=== PATIENT | female | born 1960 | race African-American/Black ===

== ENCOUNTER 2017-11-01 13:47 | Inpatient (IN) | payer SELFPAY ==
[2017-11-01 14:17] LABS: Hemoglobin 13.5 g/dL (12.0-16.0); Mean Corpuscular HGB CONC 33.8 g/dL (32.0-36.0); Mean Corpuscular Hemoglobin 30.8 pg (27.0-31.0); Mean Corpuscular Volume 91.3 fl (81.0-99.0); Mean Platelet Volume 9.1 fL (7.4-10.4); Platelet Count 184 thou/uL (130-400); RBC Distribution Width 12.6 % (11.5-14.5); Red Blood Cell (RBC) Count 4.37 mill/uL (4.20-5.40); White Blood Cell (WBC) Count 8.1 thou/uL (4.8-10.8)
[2017-11-01 14:22] LABS: PTT 27.4 SEC (22.9-36.1); Prothrombin Time 13.6 SEC (12.0-14.7)
[2017-11-01 14:31] LABS: ALT (SGPT) 24 U/L (8-55); AST (SGOT) 28 U/L (5-34); Albumin 4.4 g/dL (3.5-5.0); Alkaline Phosphatase 77 U/L (40-150); Anion Gap 17 mmol/L (10-20); BUN (Urea Nitrogen) 16 mg/dL (9.8-20.1); Bilirubin, Total 0.2 mg/dL (0.2-1.2); Calc. Creatinine Clearance 0 mL/min (70-130); Calcium 10.6 mg/dL (7.8-10.44); Carbon Dioxide 21 mmol/L (22-29); Chloride 100 mmol/L (98-107); Estimated GFR-MDRD 45; Globulin 4.8 g/dL (2.4-3.5); Glucose 298 mg/dL (70-105); Potassium 4.2 mmol/L (3.5-5.1); Protein, Total 9.2 g/dL (6.0-8.3); Sodium 134 mmol/L (136-145)
[2017-11-01 14:34] LABS: CKMB 3.3 ng/mL (0-6.6); Troponin I Less than 0.010 ng/mL (< 0.028)
[2017-11-01 14:36] LABS: Eosinophils 2 % (0-10); Lymphocytes 17 % (21-51); MDiff Complete? YES; Metamyelocyte 1 % (0-0); Monocytes 5 % (0-10); Neutrophil 75 % (42-75); PLT Morphology Comment Appears Adequate
[2017-11-01] MEDS ORDERED: Aspirin 325 MG TAB ONE (14:37)
[2017-11-01] MEDS ORDERED: Labetalol HCl 100 MG/20 ML VIAL ONE (14:37)
[2017-11-01] MEDS ORDERED: Dextrose 50% Abboject 50 ML SYRINGE SLOW IVP PRN (15:16)
[2017-11-01] MEDS ORDERED: Bisacodyl 5 MG TAB PO PRN (15:16)
[2017-11-01] MEDS ORDERED: Labetalol HCl 100 MG/20 ML VIAL SLOW IVP PRN (15:16)
[2017-11-01] MEDS ORDERED: Dextrose 5% in Water 1,000 ML IV PRN (15:16)
[2017-11-01] MEDS ORDERED: hydrALAZINE 20 MG/ML VIAL SLOW IVP PRN (15:16)
[2017-11-01] MEDS ORDERED: Acetaminophen 650 MG Suppository PR PRN (15:16)
[2017-11-01] MEDS ORDERED: hydrALAZINE 20 MG/ML VIAL ONE (15:23)
--- NOTE | 2017-11-01 15:43 | CT ---
CT BRAIN: History: Slurred speech, weakness. Right sided facial weakness. Technique: Noncontrast enhanced CT images of the brain were obtained. FINDINGS: No evidence of intracranial masses, hemorrhages, strokes or contusions seen. Ventricles are of normal size. IMPRESSION: Normal CT brain. POS: [facility]
--- NOTE | 2017-11-01 15:47 | CT ---
INTRACRANIAL CTA OF HEAD INTRACRANIAL CTA OF THE CAROTIDS: History: Slurred speech, right sided weakness. Technique: Contrast enhanced CTA of the carotid arteries and intracranial CT is performed. FINDINGS: There is some atherosclerotic plaque seen in the aortic arch. No evidence of significant pulmonary pa renchymal lesions seen. Some heterogeneity is noted in the right thyroid lobe and to a lesser degree the left thyroid lobe. C orrelate with dedicated thyroid sonographically electively. Extensive jugular and more posterior neck collateral veins are seen. The right and left common carotid arteries are unremarkable in the proximal mid portions. There is bi lateral distal CCA calcified plaque resulting in approximately 25% right distal CCA and 30% left dist al CCA stenosis due to calcified plaque. The right and left internal carotid arteries are patent. Goo d flow is seen in the APRIL, MCA vessels. Anterior communicating arteries are unremarkable. Vertebrobasilar arteries bilaterally are grossly unremarkable. Right and left posterior cerebral arlet ellen are visualized. IMPRESSION: No significant evidence of occlusive disease seen. Findings called to Dr. Bran at 2:19 p.m. on 11-01-17. POS: [facility]
[2017-11-01 15:53] LABS: Hemoglobin A1c 9.2 % (4.0-6.0)
[2017-11-01 16:18] VITALS: BMI 26.4
[2017-11-01] MEDS: Sodium Chloride 0.9% 1,000 ML IV SCH (16:30)
[2017-11-01] MEDS ORDERED: ISOVUE-370 76%-LOCM 1 ML ONE (16:40)
--- NOTE | 2017-11-01 16:45 | HP ---
PRIMARY CARE PROVIDER: Out of town, [place]. CHIEF COMPLAINT: Slurred speech and facial droop. HISTORY OF PRESENT ILLNESS: Ms. Pratt is a pleasant 57-year-old lady who was seen at [facility] on 11/01/2017. She is visiting from [place]. She reports that she was drinking during the night and around 3:30 a.m., her daughter noticed that nasreen lopez had slurred speech as well as right-sided facial droop. The patient came to the emergency room aft er several hours. She reports that in the meantime, her speech has improved, but she is slurring on certain words. She also reports that her facial droop has resolved. She denies any chest pain or shortness of breath. She denies any fevers or chills. She reports that she is compliant with her medications. REVIEW OF SYSTEMS: The following complete review of systems was negative, unless otherwise mentioned in the HPI or below: Constitutional: Weight loss or gain, ability to conduct usual activities. Skin: Rash, itching. Eyes: Double vision, pain. ENT/Mouth: Nose bleeding, neck stiffness, pain, tenderness. Cardiovascular: Palpitations, dyspnea on exertion, orthopnea. Respiratory: Shortness of breath, wheezing, cough, hemoptysis, fever or night sweats. Gastrointestinal: Poor appetite, abdominal pain, heartburn, nausea, vomiting, constipation, or diarr hea. Genitourinary: Urgency, frequency, dysuria, nocturia. Musculoskeletal: Pain, swelling. Neurologic/Psychiatric: Anxiety, depression. Allergy/Immunologic: Skin rash, bleeding tendency. PAST MEDICAL HISTORY: Significant for hypertension, diabetes mellitus type 2 and gastroesophageal re flux disease. PAST SURGICAL HISTORY: Significant for section x2. SOCIAL HISTORY: The patient drinks alcohol on a weekly basis. She reports smoking cigarettes occasi onally. She also uses marijuana, but denies any other recreational drug use. FAMILY HISTORY: Significant for stroke in her first cousin as well as paternal uncle. ALLERGIES: CODEINE. CURRENT MEDICATIONS: Metformin 1000 mg 2 times a day, glipizide 5 mg 2 times a day, aspirin 81 mg da afia, Prevacid 20 mg daily, losartan/hydrochlorothiazide 100/25 mg daily. PHYSICAL EXAMINATION: GENERAL: Ms. Pratt is awake and alert, not in acute distress. VITAL SIGNS: Blood pressure is 195/99, pulse is 81. She is breathing at rate of 22 and saturating 1 00% on room air. She is afebrile. Her blood pressure was as high as 231/100 in the emergency room jessica honeycutt. EYES: No scleral icterus. No conjunctival pallor. ENT: Moist mucosal membranes. No oropharyngeal erythema or exudates. NECK: Supple, nontender, normal range of movement. Trachea is midline. RESPIRATORY: Accessory muscles of breathing are not active. Chest wall movements are symmetric bila terally. Lungs are clear to auscultation without wheeze, rhonchi or crepitations. CARDIOVASCULAR: S1 and S2 are heard, regular. Peripheral pulses palpable. No carotid bruit, no per icardial rub. ABDOMEN: Soft and nontender. Bowel sounds are heard. No hepatomegaly, no splenomegaly. NEUROLOGIC: She actually appears to have mild left-sided facial droop. Otherwise, cranial nerves II -XII are intact. No focal motor or sensory deficits. Power is 5/5 in all 4 extremities. Deep tendo n reflexes 2+, plantar reflexes downgoing bilaterally. MUSCULOSKELETAL: Power in the 4 extremities as described above. Normal range of movement at all josefina or extremity joints. SKIN: No rashes or subcutaneous nodules. LYMPHATIC: No cervical lymphadenopathy. PSYCHIATRIC: Normal mood, normal affect. The patient is oriented to person, place and time. DATABASE: Ms. Pratt's labs and investigations were reviewed. I reviewed her electrocardiogram, [facility] shows normal sinus rhythm, no ST changes to suggest an acute coronary syndrome. I also reviewed er noncontrast CT scan of the brain, which did not show any acute abnormality. She also had a CT ang iogram of the head and neck. The emergency room physician reports that she had a 30% stenotic lesion in the right internal carotid artery. She has an unremarkable CBC, INR 1.0, hyponatremia with sodiu m of 134, normal potassium, elevated creatinine of 1.23, elevated glucose of 298, elevated calcium of 10.6, normal AST, normal ALT, normal alkaline phosphatase, normal total bilirubin and normal albumin . Troponin I is normal. ASSESSMENT AND PLAN: Ms. Pratt is a pleasant 57-year-old lady who was seen at [facility] on 11/01/2017. Her problem list includes: 1. Transient ischemic attack: She is presenting with symptoms suggestive of transient ischemic jamel ck. She will be admitted to the hospital for further monitoring and workup including MRI brain and 2 D echocardiogram. Cardiology Service will be consulted as well for opinion and help with management. She is already on aspirin and has a history of gastroesophageal reflux disease. Therefore, I am st arting her on Plavix instead of increasing aspirin dose. I will also start her on statin. 2. Hyponatremia: Mild, likely asymptomatic, we will recheck. 3. Renal insufficiency: Unsure whether this is acute or chronic. We will provide intravenous fluid s and recheck. Her blood urea nitrogen is normal at this time. 4. Diabetes mellitus type 2: Appears to be poorly controlled. We will start patient on Accu-Cheks and insulin sliding scale and check hemoglobin A1c. 5. Hypertension: Monitor vital signs, titrate antihypertensives as needed. 6. Hypercalcemia: Mild, rechecked. Many thanks for allowing me to participate in Ms. Pratt's care. Please feel free to contact me with any questions or concerns. LEVEL OF RISK: High. LEVEL OF COMPLEXITY: High.
[2017-11-01 19:20] LABS: Amphetamine Not Detected (NotDetected); Barbiturates Screen Not Detected (NotDetected); Benzodiazepine Screen Not Detected (NotDetected); Cocaine Metabolite Screen Not Detected (NotDetected); Medtox Control Line Valid? VALID (VALID); Medtox Reader # READER 1; Methadone Not Detected (NotDetected); Methamphetamine Not Detected (NotDetected); Opiate Screen Not Detected (NotDetected); Oxycodone Screen Not Detected (NotDetected); Phencyclidine (PCP) Not Detected (NotDetected); THC/Cannabinoid Screen Not Detected (NotDetected); Tricyclic Screen Not Detected (NotDetected)
[2017-11-01] MEDS: Atorvastatin Calcium 10 MG TAB PO SCH (21:01)
[2017-11-01] MEDS: HumaLOG 300 UNITS/3 ML VIAL SC PRN (21:01)
[2017-11-02] MEDS: Acetaminophen 325 MG TAB PO PRN (00:02)
[2017-11-02 05:52] LABS: Anion Gap 13 mmol/L (10-20); BUN (Urea Nitrogen) 14 mg/dL (9.8-20.1); Calc. Creatinine Clearance 79 mL/min (70-130); Calcium 9.2 mg/dL (7.8-10.44); Carbon Dioxide 25 mmol/L (22-29); Cardiac Risk 4.2 (Less than 4.5); Chloride 101 mmol/L (98-107); Cholesterol 191 mg/dl (< 200 Desired); Estimated GFR-MDRD 72; Glucose 261 mg/dL (70-105); HDL Cholesterol 45 mg/dL (>60 Neg Risk); LDL Cholesterol, Calculated 123 mg/dL; Potassium 3.7 mmol/L (3.5-5.1); Sodium 135 mmol/L (136-145); Triglycerides 116 mg/dL (Less than 150)
[2017-11-02 06:00] LABS: #Basophils 0.1 thou/uL (0.0-0.2); #Eosinphils 0.5 thou/uL (0.0-0.7); #Lymphocytes 2.9 thou/uL (1.20-3.40); #Monocytes 0.6 thou/uL (0.11-0.59); #Neutrophils 3.5 thou/uL (1.40-6.50); %Basophils 1.5 % (0.0-1.0); %Eosinophils 7.1 % (0.0-10.0); %Lymphocytes 38.2 % (21.0-51.0); %Monocytes 7.7 % (0.0-10.0); %Neutrophils 45.5 % (42.0-75.0); Hemoglobin 10.9 g/dL (12.0-16.0); Mean Corpuscular HGB CONC 32.7 g/dL (32.0-36.0); Mean Corpuscular Hemoglobin 29.6 pg (27.0-31.0); Mean Corpuscular Volume 90.6 fl (81.0-99.0); Mean Platelet Volume 7.8 fL (7.4-10.4); Platelet Count 310 thou/uL (130-400); RBC Distribution Width 12.4 % (11.5-14.5); Red Blood Cell (RBC) Count 3.67 mill/uL (4.20-5.40); White Blood Cell (WBC) Count 7.7 thou/uL (4.8-10.8)
[2017-11-02] MEDS: HumaLOG 300 UNITS/3 ML VIAL SC PRN ×3 (06:39→17:14)
[2017-11-02] MEDS ORDERED: Acetaminophen/Codeine 30-300mg Tablet PO SCH (08:30)
[2017-11-02] MEDS: Enoxaparin Sodium 40 MG/0.4 ML SYRINGE SC SCH (08:50)
[2017-11-02] MEDS: Clopidogrel Bisulfate 75 MG TAB PO SCH (08:51)
[2017-11-02] MEDS: glipiZIDE 5 MG TAB PO SCH ×2 (08:51→21:53)
[2017-11-02] MEDS: Aspirin 81 mg Enteric Coated Tablet PO SCH (08:51)
[2017-11-02] MEDS: Losartan/Hydrochlorothiazide 100 mg/25 mg Tablet PO SCH (08:51)
[2017-11-02] MEDS: metFORMIN 500 MG TAB PO SCH ×2 (08:53→21:54)
[2017-11-02] MEDS ORDERED: Losartan/Hydrochlorothiazide 100 mg/25 mg Tablet PO SCH (09:00)
[2017-11-02] MEDS ORDERED: LANSOPRAZOLE 15 MG PO SCH (09:00)
[2017-11-02] MEDS ORDERED: Aspirin 81 mg Enteric Coated Tablet PO SCH (09:00)
[2017-11-02] MEDS ORDERED: Non-Formulary Item 1 EACH (Metformin Hcl [Metformin Hcl] 1,000 MG) PO SCH (09:00)
[2017-11-02] MEDS ORDERED: Naproxen 500 MG TAB PO SCH (10:15)
[2017-11-02] MEDS: Sodium Chloride 0.9% 1,000 ML IV SCH (11:41)
--- NOTE | 2017-11-02 14:54 | MRI ---
MRI OF THE BRAIN WITHOUT CONTRAST: COMPARISON: None. HISTORY: Slurred speech and weakness. Right facial weakness. TECHNIQUE: Multiplanar, multisequence MR images were obtained of the brain without contrast. FINDINGS: There are a few scattered foci of high T2-FLAIR signal in the right periventricular white matter whic h may be secondary to small-vessel ischemic disease. There is a triangular area of restricted diffusion and high FLAIR signal in the right basal ganglia m easuring approximately 8 mm in size. This represents a small acute infarction. There is no evidence of hydrocephalus, intracranial hemorrhage, or extraaxial fluid collection. The expected flow voids are present. The corpus callosum, pituitary, and craniocervical junction are unr emarkable. There is mild mucosal thickening in the paranasal sinuses. The mastoid air cells are well aerated. IMPRESSION: 1. Small lacunar infarction in the right basal ganglia. 2. Small-vessel ischemic disease. POS: [facility]
[2017-11-02] MEDS ORDERED: hydrALAZINE 20 MG/ML VIAL SLOW IVP SCH (16:00)
--- NOTE | 2017-11-02 16:03 | PDOC.PN ---
- Subjective Encounter Start Date: 11/02/17 Encounter Start Time: 16:01 Pt seen for followup re: ischemic CVA. Denies chest pain or shortness of breath. Reports on and off slurring of speech. - Objective MAR Reviewed: Yes Vital Signs & Weight: Vital Signs (12 hours) Temp Pulse Resp BP BP Pulse Ox 11/02/17 12:00 98.9 F 80 16 184/96 H 99 11/02/17 11:40 81 191/93 H 11/02/17 10:00 81 168/93 H 11/02/17 08:10 75 16 203/111 H 11/02/17 08:00 98.4 F 75 16 11/02/17 07:54 98.4 F 74 16 200/107 H 100 Weight Weight 168 lb 6.4 oz I&O: 11/01/17 11/02/17 11/03/17 06:59 06:59 06:59 Intake Total 1280 960 Balance 1280 960 Result Diagrams: 11/02/17 04:37 11/02/17 04:37 Additional Labs: Accuchecks 11/02/17 11/02/17 11/01/17 10:55 04:46 20:35 POC Glucose 258 H 296 H 216 H 11/01/17 16:55 POC Glucose 161 H EKG Reviewed by me: Yes (Tele: NSR) Phys Exam - Physical Examination Constitutional: NAD HEENT: PERRLA, moist MMs, sclera anicteric, oral pharynx no lesions Neck: no nodes, no JVD, supple, full ROM Respiratory: no wheezing, no rales, no rhonchi, clear to auscultation bilateral Cardiovascular: RRR, no rub Gastrointestinal: soft, non-tender, no distention, positive bowel sounds Neurological: non-focal, normal sensation, moves all 4 limbs Psychiatric: normal affect Dx/Plan (1) Ischemic cerebrovascular accident (CVA) Code(s): I63.9 - CEREBRAL INFARCTION, UNSPECIFIED Status: Acute Comment: lacunar infarct on MRI. Await PT/OT/speech eval. Await neurology input. Continue aspirin, Plavix and statin. (2) Hypertensive urgency Code(s): I16.0 - HYPERTENSIVE URGENCY Status: Acute Comment: Increase metoprolol dose. Administer IV hydralazine. Add PO hydralazine. (3) DM2 (diabetes mellitus, type 2) Status: Chronic Comment: Continue accuchecks, insulin sliding scale. (4) GERD (gastroesophageal reflux disease) Code(s): K21.9 - GASTRO-ESOPHAGEAL REFLUX DISEASE WITHOUT ESOPHAGITIS Status: Chronic Comment: continue PPI (5) BRENT (acute kidney injury) Code(s): N17.9 - ACUTE KIDNEY FAILURE, UNSPECIFIED Status: Resolved - Plan plan discussed w/ family, PT/OT, speech therapy, out of bed/ambulate * . Review of Systems - Review of Systems Constitutional: negative: fever, chills, sweats, weakness, malaise Respiratory: negative: Cough, Shortness of Breath, Hemoptysis, SOB with Excertion, Pleuritic Pain, Wheezing Cardiovascular: negative: chest pain, palpitations, orthopnea, paroxysmal nocturnal dyspnea, edema, light headedness Gastrointestinal: negative: Nausea, Vomiting, Abdominal Pain, Diarrhea, Constipation, Melena, Hematochezia Skin: negative: Rash, Lesions, Seymour, Bruising Neurological: Change in Speech. negative: Weakness, Numbness, Incoordination, Confusion, Seizures - Medications/Allergies Allergies/Adverse Reactions: Allergies Allergy/AdvReac Type Severity Reaction Status Date / Time codeine Allergy Verified 11/01/17 15:16 Medications: Current Medications Acetaminophen (Tylenol) 650 mg PO Q4H PRN PRN Reason: Headache/Fever or Pain Last Admin: 11/02/17 00:02 Dose: 650 mg Acetaminophen (Tylenol) 650 mg MN Q4H PRN PRN Reason: Headache/Fever or Pain Aspirin (Ecotrin) 81 mg PO DAILY [facility] Last Admin: 11/02/17 08:51 Dose: 81 mg Atorvastatin Calcium (Lipitor) 10 mg PO HS [facility] Last Admin: 11/01/17 21:01 Dose: 10 mg Bisacodyl (Dulcolax) 10 mg PO DAILYPRN PRN PRN Reason: Constipation Clopidogrel Bisulfate (Plavix) 75 mg PO DAILY [facility] Last Admin: 11/02/17 08:51 Dose: 75 mg Dextrose/Water (Dextrose 50%) 25 gm SLOW IVP PRN PRN PRN Reason: Hypoglycemia Enoxaparin Sodium (Lovenox) 40 mg SC 0900 [facility] Last Admin: 11/02/17 08:50 Dose: 40 mg Glipizide (Glucotrol) 5 mg PO BID [facility] Last Admin: 11/02/17 08:51 Dose: 5 mg Glucagon (Glucagon) 1 mg IM PRN PRN PRN Reason: Hypoglycemia HCTZ/Losartan Potassium (Hyzaar 100/25) 1 tab PO DAILY [facility] Last Admin: 11/02/17 08:51 Dose: 1 tab Hydralazine HCl (Apresoline) 10 mg SLOW IVP Q4H PRN PRN Reason: BP > 220/110 Hydralazine HCl (Apresoline) 25 mg PO QID [facility] Hydralazine HCl (Apresoline) 10 mg SLOW IVP NOW [facility] Stop: 11/02/17 18:00 Dextrose/Water (D5w) 1,000 mls @ 0 mls/hr IV .Q0M PRN; As Directed PRN Reason: Hypoglycemia Insulin Human Lispro (Humalog) 0 units SC .MILD SLIDING SCALE PRN PRN Reason: Mild Correctional Scale Last Admin: 11/02/17 11:40 Dose: 4 unit Labetalol HCl (Normodyne) 20 mg SLOW IVP Q1H PRN PRN Reason: BP > 220/110 Metformin HCl (Glucophage) 1,000 mg PO BID [facility] Last Admin: 11/02/17 08:53 Dose: Not Given Metoprolol Succinate (Toprol Xl) 25 mg PO ONE [facility] Metoprolol Succinate (Toprol Xl) 75 mg PO DAILY [facility] Pantoprazole Sodium (Protonix) 40 mg PO DAILY [facility] Last Admin: 11/02/17 08:51 Dose: 40 mg Sodium Chloride (Flush - Normal Saline) 10 ml IVF Q12HR [facility] Last Admin: 11/02/17 08:53 Dose: Not Given Sodium Chloride (Flush - Normal Saline) 10 ml IVF PRN PRN PRN Reason: Saline Flush
[2017-11-02] MEDS: hydrALAZINE 25 MG TAB PO SCH ×2 (17:15→21:53)
--- NOTE | 2017-11-02 20:12 | CON ---
DATE OF CONSULTATION: 11/02/2017 CONSULTING PHYSICIAN: Hospitalist IMPRESSION: 1. Small vessel stroke resulting in mild left-sided weakness. 2. Hypertension. 3. Diabetes. 4. Hyperlipidemia. PLAN: 1. Add a statin. 2. Continue aspirin. 3. Outpatient followup. HISTORY OF PRESENT ILLNESS: Ms. Pratt is a 57-year-old black female who presented with facial droop prior to admission. She did not really notice any weakness of her arm or leg. There is no associat ed vertigo, double vision, slurred speech, difficulty swallowing, headache, nausea, vomiting, or vert igo. She has never any symptoms like this in the past. Her MRI of the brain revealed acute right ba chasidy ganglia infarct. Her echocardiogram showed a normal ejection fraction of 65%. Her CTA of the ca rotids and cahto of [place] only showed a 30% bit of stenosis in both carotid arteries. PAST MEDICAL HISTORY: As listed. ALLERGIES: CODEINE. SOCIAL HISTORY: No tobacco use. FAMILY HISTORY: Noncontributory. REVIEW OF SYSTEMS: Otherwise, negative. PHYSICAL EXAMINATION: GENERAL: She is a healthy appearing middle-aged woman in no distress. HEENT: Pupils equal and reactive. Conjunctivae clear. Oropharynx clear. NECK: Supple. EXTREMITIES: No cyanosis. NEUROLOGIC: She is alert and oriented. Her speech is fluent and clear. There is a mild left facial droop present. Motor strength testing showed a fix on the left. Sensation was intact to light touc h. Gait was not tested. No abnormal movements were seen. Plantar responses were downgoing. EKG shows normal sinus rhythm. SUMMARY: Pleasant woman with a small vessel stroke secondary to her underlying hypertension and diab etes. She was taking aspirin on a daily basis. I would add a statin and follow her as an outpatient .
[2017-11-02] MEDS: Atorvastatin Calcium 10 MG TAB PO SCH (21:53)
[2017-11-03] MEDS ORDERED: Labetalol HCl 100 MG/20 ML VIAL SLOW IVP PRN (05:02)
[2017-11-03] MEDS: Acetaminophen 325 MG TAB PO PRN (05:13)
[2017-11-03 05:49] LABS: #Basophils 0.1 thou/uL (0.0-0.2); #Eosinphils 0.6 thou/uL (0.0-0.7); #Lymphocytes 2.6 thou/uL (1.20-3.40); #Monocytes 0.4 thou/uL (0.11-0.59); #Neutrophils 2.9 thou/uL (1.40-6.50); %Basophils 1.4 % (0.0-1.0); %Eosinophils 9.2 % (0.0-10.0); %Lymphocytes 38.9 % (21.0-51.0); %Monocytes 6.1 % (0.0-10.0); %Neutrophils 44.4 % (42.0-75.0); Hemoglobin 11.3 g/dL (12.0-16.0); Mean Corpuscular HGB CONC 31.7 g/dL (32.0-36.0); Mean Corpuscular Hemoglobin 28.6 pg (27.0-31.0); Mean Corpuscular Volume 90.1 fl (81.0-99.0); Mean Platelet Volume 7.2 fL (7.4-10.4); Platelet Count 330 thou/uL (130-400); RBC Distribution Width 12.4 % (11.5-14.5); Red Blood Cell (RBC) Count 3.97 mill/uL (4.20-5.40); White Blood Cell (WBC) Count 6.6 thou/uL (4.8-10.8)
[2017-11-03] MEDS: HumaLOG 300 UNITS/3 ML VIAL SC PRN (06:23)
[2017-11-03 06:26] LABS: Calcium 9.9 mg/dL (7.8-10.44)
[2017-11-03 06:32] LABS: Anion Gap 11 mmol/L (10-20); BUN (Urea Nitrogen) 12 mg/dL (9.8-20.1); Calc. Creatinine Clearance 91 mL/min (70-130); Carbon Dioxide 27 mmol/L (22-29); Chloride 102 mmol/L (98-107); Estimated GFR-MDRD 85; Glucose 191 mg/dL (70-105); Potassium 3.4 mmol/L (3.5-5.1); Sodium 137 mmol/L (136-145)
[2017-11-03] MEDS: Enoxaparin Sodium 40 MG/0.4 ML SYRINGE SC SCH (07:37)
[2017-11-03] MEDS: metFORMIN 500 MG TAB PO SCH (07:37)
[2017-11-03] MEDS: hydrALAZINE 25 MG TAB PO SCH (07:38)
[2017-11-03] MEDS: glipiZIDE 5 MG TAB PO SCH (07:38)
[2017-11-03] MEDS: Aspirin 81 mg Enteric Coated Tablet PO SCH (07:38)
[2017-11-03] MEDS: Clopidogrel Bisulfate 75 MG TAB PO SCH (07:38)
[2017-11-03 07:48] VITALS: TEMP 98.4
[2017-11-03] MEDS: Losartan/Hydrochlorothiazide 100 mg/25 mg Tablet PO SCH (08:28)
[2017-11-03] MEDS ORDERED: Potassium Chloride 20 MEQ TAB PO SCH (09:15)
[2017-11-03 10:42] VITALS: BP 176/99
--- NOTE | 2017-11-03 11:51 | DIS ---
DATE OF ADMISSION: 11/01/2017 DATE OF DISCHARGE: 11/03/2017 PRIMARY CARE PROVIDER: Dr. Kaushal Cook, he practices in [place] and his contact number is . DISCHARGE DIAGNOSES: 1. Ischemic cerebrovascular accident. 2. Hypertensive urgency. CONSULTATIONS DURING THIS HOSPITALIZATION: Neurology, Dr. Sang Bauer. INVESTIGATIONS DURING THIS HOSPITALIZATION: 1. On 11/01/2017, noncontrast CT scan of the brain which was normal. 2. On 11/01/2017, CT angiography of head and carotids, which did not reveal any significant evidence of occlusive disease. 3. MRI of the brain on 11/02/2017, which showed a small lacunar infarction in the right basal gangli a as well as small vessel ischemic disease. 4. 2D echocardiogram on 11/02/2017, which showed left ventricular ejection fraction of 60%-65%, norm al right ventricular size and function, trace mitral regurgitation, trace tricuspid regurgitation and mild pulmonic regurgitation. CONDITION OF PATIENT ON THE DAY OF DISCHARGE: Stable. I assessed Ms. Pratt on the day of discharge . She denies any chest pain or shortness of breath. She denies any neurologic symptoms. Vital sign s are stable. S1 and S2 are heard, regular. Lungs are clear to auscultation bilaterally. DISCHARGE MEDICATIONS: Aspirin 81 mg daily, Lipitor 10 mg at bedtime, glipizide 5 mg 2 times a day, Apresoline 25 mg 4 times a day, Prevacid 15 mg daily, losartan/hydrochlorothiazide 100/25 mg daily, m etformin 1000 mg 2 times a day, Toprol-XL 75 mg daily. HOSPITAL COURSE: Ms. Pratt is a pleasant 57-year-old lady who was admitted to [facility] on 11/01/2017 for possible TIA, with slurred speech and slight facial droop. When I exa mined her, she actually had mild left facial droop. Her slurred speech resolved. She was seen by [facility]. She underwent investigations as detailed above. She was also seen by [facility], occupational therapy, and speech therapy services. Her blood pressures were significantly elevated during this hospitalization. Her blood sugars were a lso elevated. Her metformin was on hold during this hospitalization because she received CT contrast on the day of admission. She is being restarted on metformin. She is advised to follow up with her primary care provider for further management of diabetes mellitus and hypertension. I have increase d her metoprolol succinate dose to 75 mg daily and I have started her on hydralazine 25 mg 4 times a day. I have advised her to check her blood pressure and heart rate 3 times a day and show the readin gs to her primary care provider. LABORATORY DATA: On the day of discharge, she has sodium of 137, potassium 3.4, which has been repla lyubov, creatinine 0.84, white count 6,600, hemoglobin 11.3, and platelet count 330,000. Many thanks for allowing me to participate in your patient's care. Please feel free to contact me wi th any questions or concerns. DISCHARGE DESTINATION: Home. TOTAL AMOUNT OF TIME SPENT COORDINATING THIS DISCHARGE: 33 minutes.
== END 2017-11-03 12:20 | disposition home or self-care (01) | DRG 65 ==
LOC: ERS 13:47 → EDBD 13:47 → OBSVTOIN 14:30 → 2SE 14:30
PROVIDERS: ADMIT Internal Medicine; ATTEND Internal Medicine
DX: I62.9 Nontraumatic intracranial hemorrhage, unspecified (principal); E87.1 Hypo-osmolality and hyponatremia; N17.9 Acute kidney failure, unspecified; E83.52 Hypercalcemia; I08.1 Rheumatic disorders of both mitral and tricuspid valves; F17.210 Nicotine dependence, cigarettes, uncomplicated; R29.810 Facial weakness; R47.81 Slurred speech; I10 Essential (primary) hypertension; I16.0 Hypertensive urgency; Z79.84 Long term (current) use of oral hypoglycemic drugs
CPT/HCPCS: 36415; 36416; 70450; 70496; 70498; 70551; 80048; 80053; 80061; 80306; 82553; 83036; 84484; 85025; 85610; 85730; 93005; 93306; 96374; 96375; A4216; G8978-GP-CK; G8979-GP-CK; G8980-GP-CK; G8987-GO-CI; G8988-GO-CI; G8989-GO-CI; G8999-GN-CI; G9186-GN-CH; J0360; J1650